=== PATIENT | male | born 1995 | race Caucasian/White ===

== ENCOUNTER 2023-06-04 14:21 | Outpatient (AMB) | payer BC, SELFPAY ==
--- NOTE | 2023-06-04 14:43 | HO.NEPHOV ---
HPI HPI Comments History of Present Illness Details I had the privilege of seeing Ralph in consultation for labile hypertension in a clinical environment. 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 He claims to have been having high blood pressure even from the age of 10 years when he goes to see a physician. He has gained some weight. He has not known to have any renal dysfunction, diabetes, low potassium, high calcium, flushing, sweating, palpitation, diarrhea or orthostatic symptoms. His mother is hypertensive. He has not very strict with low-sodium diet. He does not take any nonsteroidal anti-inflammatory medications nor has any history of cocaine use. He is quite active. He did not have any other systemic complaints at the time of this office visit. [facility] Medical History (Updated 06/04/23 @ 15:07 by Chase Panchal MD) SI (sacroiliac) joint dysfunction Hypertension History of gastroenteritis Fatty liver Elevated blood pressure reading Diarrhea Family History (Updated 06/04/23 @ 14:47 by Anya Rizvi MA) Paternal Grandfather Diabetes mellitus, type II Paternal Grandmother Diabetes mellitus, type II Maternal Grandmother Diabetes mellitus, type II Mother Hypertension Father Diabetes mellitus, type II Social History (Updated 06/04/23 @ 14:48 by Anya Rizvi MA) Alcohol intake: current Comment: Socially Patient Tobacco Use Status: Never used Tobacco Vital Signs 06/04/23 14:44 Height 6 ft Weight 271 lb 4 oz BMI 36.8 BP 140/80 H Blood Pressure Location Lt brachial Position Sitting Pulse 109 H Pulse Source Pulse Oximeter Pulse Oximetry (%) 100 Oxygen Delivery Method Room Air Physical Exam Vital Signs: Last Vital Signs Pulse 109 H 06/04/23 14:44 BP 140/80 H 06/04/23 14:44 Pulse Ox 100 06/04/23 14:44 Oxygen Delivery Method Room Air 06/04/23 14:44 BMI result Body Mass Index 36.8 Const General: comfortable and no acute distress Orientation/consciousness: patient oriented x3 HEENT Head: Yes normocephalic Mouth: Normal oral and palatal mucosa present Eyes EOM: EOMs intact bilaterally Neck Neck: Yes supple Resp Auscultation: clear to auscultation bilaterally Cardio Jugular venous distension: no JVD Rate: regular rate GI Palpation (GI): Soft to palpation Auscultation: normal bowel sounds General: Yes no CVA tenderness Back/Spine/Pelvis Back: no CVA tenderness Skin General skin exam: no rashes or lesions noted Neuro General: patient oriented x3 and moves all extremities Extrem General: Yes no pedal edema Assessment & Plan Assessment & Plan (1) Labile hypertension due to clinical environment: Code(s): R09.89 - Other specified symptoms and signs involving the circulatory and respiratory systems Plan Ralph is known to have white coat hypertension. He never had any low potassium or high calcium. He has gained some weight. I ordered a 24 hour ambulatory blood pressure monitor for him. He should be on a low-sodium diet and needs to lose some weight. His blood pressure is high by ambulatory blood pressure monitor, I would check his thyroid function, cortisol, metanephrines, renin, aldosterone as well as Doppler of his renal arteries. He needs to increase his activity, maintain good hydration and avoid nonsteroidal anti-inflammatories. He has no history of any coronary artery disease, diabetes mellitus or heart failure. I did not make any medication changes today. Further management is pending evolving data. Answered all his questions. Follow-up appointment given. Orders: Orders AMB 24 Hour Blood Pressure Monitor PLACEMENT 06/04/23 R09.89 - Other specified symptoms and signs involving the circulatory and respiratory systems Coding Level of Care Code New Pt Level 4 (76307) Diagnoses Labile hypertension due to clinical environment R09.89 Results Reviewed Nephrology Results: No Data to Display
[2023-06-04 14:44] VITALS: BP 140/80; PULSE 109; O2SAT 100; BMI 36.8
== END 2023-06-04 15:13 | disposition home or self-care (01) ==
PROVIDERS: PCP Family Medicine; Referring Provider Family Medicine; Visit Provider Internal Medicine Nephrology
DX: R09.89 Other specified symptoms and signs involving the circulatory and respiratory systems (principal)
CPT/HCPCS: 99204

== ENCOUNTER → 2023-06-04 14:21 | Outpatient (BNVA) | payer BC, SELFPAY | PROVIDERS: PCP Family Medicine; Referring Provider Family Medicine; Visit Provider Internal Medicine Nephrology ==

== ENCOUNTER → 2023-07-08 11:59 | Outpatient (BNVA) | payer BC, SELFPAY | PROVIDERS: PCP Family Medicine; Visit Provider Internal Medicine Nephrology ==

== ENCOUNTER 2023-07-09 11:56 | Outpatient (AMB) | payer BC, SELFPAY ==
[2023-07-09 12:24] VITALS: BP 140/72; PULSE 125; O2SAT 98; BMI 37.3
--- NOTE | 2023-07-09 12:24 | HO.NEPHOV_ITS ---
Vital Signs 07/09/23 12:24 Height 6 ft Weight 275 lb BMI 37.3 BP 140/72 H Blood Pressure Location Rt brachial Position Sitting Pulse 125 H Pulse Source Pulse Oximeter Pulse Oximetry (%) 98 Oxygen Delivery Method Room Air Intake Visit Reasons: ABPM results/ Confirmed Associate Director Regulatory Affairs Required: No Accompanied by: Self / Same As Patient Allergies amoxicillin Allergy (Verified 07/09/23 12:26) Unknown HPI Comments Details: I had the privilege of seeing Ralph in follow up for labile hypertension in a clinical environment. 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 He claims to have been having high blood pressure even from the age of 10 years when he goes to see a physician. He has gained some weight. He has not known to have any renal dysfunction, diabetes, low potassium, high calcium, flushing, sweating, palpitation, diarrhea or orthostatic symptoms. His mother is hypertensive. He has not very strict with low-sodium diet. He does not take any nonsteroidal anti-inflammatory medications nor has any history of cocaine use. He is quite active. He did not have any other systemic complaints at the time of this office visit. He had a 24 hour BP monitor which showed a 24 hour average of 133/75 with a day time average of 135/77 and night time average of 127/70 mm of Hg. [facility] Medical History (Updated 06/04/23 @ 15:07 by Chase Panchal MD) SI (sacroiliac) joint dysfunction Hypertension History of gastroenteritis Fatty liver Elevated blood pressure reading Diarrhea Family History Paternal Grandfather Diabetes mellitus, type II Paternal Grandmother Diabetes mellitus, type II Maternal Grandmother Diabetes mellitus, type II Mother Hypertension Father Diabetes mellitus, type II Social History Alcohol intake: current Comment: Socially Patient Tobacco Use Status: Never used Tobacco Physical Exam Vital Signs: Last Vital Signs Pulse 125 H 07/09/23 12:24 BP 140/72 H 07/09/23 12:24 Pulse Ox 98 07/09/23 12:24 Oxygen Delivery Method Room Air 07/09/23 12:24 BMI result Body Mass Index 37.3 Const General: comfortable and no acute distress Orientation/consciousness: patient oriented x3 HEENT Head: Yes normocephalic Mouth: Normal oral and palatal mucosa present Eyes EOM: EOMs intact bilaterally Neck Neck: Yes supple Resp Auscultation: clear to auscultation bilaterally Cardio Jugular venous distension: no JVD Rate: regular rate GI Palpation (GI): Soft to palpation Auscultation: normal bowel sounds General: Yes no CVA tenderness Back/Spine/Pelvis Back: no CVA tenderness Skin General skin exam: no rashes or lesions noted Neuro General: patient oriented x3 and moves all extremities Extrem General: Yes no pedal edema Results Reviewed Nephrology Results: No Data to Display Assessment & Plan Assessment & Plan (1) Labile hypertension due to clinical environment: Code(s): R09.89 - Other specified symptoms and signs involving the circulatory and respiratory systems Category: Medical Plan Ralph is known to have white coat hypertension. He never had any low potassium or high calcium. He has gained some weight. He had a 24 hour BP monitor which showed a 24 hour average of 133/75 with a day time average of 135/77 and night time average of 127/70 mm of Hg. I have discussed the possible options of management like Lifestyle modifications including significant weight loss as well as dietary changes versus initiating him on medications now and adjust/ back off on them if the blood pressure is better. He is going to get an echocardiogram soon. We agreed to have follow up in six-months and then decide which direction he should start taking medications to keep blood pressure close to 120/80. I would check his thyroid function, cortisol, metanephrines, renin, aldosterone as well as Doppler of his renal arteries, if his blood pressure remains fluctuant. He needs to increase his activity, maintain good hydration and avoid nonsteroidal anti-inflammatories. He has no history of any coronary artery disease, diabetes mellitus or heart failure. I did not make any medication changes today. Answered all his questions. Follow-up appointment given Coding Level of Care Code Est Pt Level 4 (78647) Diagnoses Labile hypertension due to clinical environment R09.89
== END 2023-07-09 12:45 | disposition home or self-care (01) ==
PROVIDERS: PCP Family Medicine; Visit Provider Internal Medicine Nephrology
DX: R09.89 Other specified symptoms and signs involving the circulatory and respiratory systems (principal)
CPT/HCPCS: 93790; 99214

== ENCOUNTER → 2023-07-09 11:56 | Outpatient (BNVA) | payer BC, SELFPAY | PROVIDERS: PCP Family Medicine; Visit Provider Internal Medicine Nephrology ==

== ENCOUNTER 2024-02-11 13:28 | Outpatient (AMB) | payer OTHER, SELFPAY ==
--- NOTE | 2024-02-11 13:32 | HO.NEPHOV ---
Vital Signs 02/11/24 13:34 Height 6 ft Weight 270 lb 4 oz BMI 36.6 BP 122/82 Blood Pressure Location Lt brachial Position Sitting Pulse 98 Pulse Source Pulse Oximeter Pulse Oximetry (%) 99 Oxygen Delivery Method Room Air Intake Visit Reasons: Dec follow up/ Conf Assistant Director Of Nursing Required: No Accompanied by: Self / Same As Patient Allergies amoxicillin Allergy (Verified 02/11/24 13:34) Unknown HPI Comments Details: Ralph in follow up for labile hypertension in a clinical environment. 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 He claims to have been having high blood pressure even from the age of 10 years when he goes to see a physician. He has not known to have any renal dysfunction, diabetes, low potassium, high calcium, flushing, sweating, palpitation, diarrhea or orthostatic symptoms. His mother is hypertensive. He has not very strict with low-sodium diet. He does not take any nonsteroidal anti-inflammatory medications nor has any history of cocaine use. He is quite active. He did not have any other systemic complaints at the time of this office visit. [facility] Medical History (Updated 06/04/23 @ 15:07 by Chase Panchal MD) SI (sacroiliac) joint dysfunction Hypertension History of gastroenteritis Fatty liver Elevated blood pressure reading Diarrhea Family History Paternal Grandfather Diabetes mellitus, type II Paternal Grandmother Diabetes mellitus, type II Maternal Grandmother Diabetes mellitus, type II Mother Hypertension Father Diabetes mellitus, type II Social History Alcohol intake: current Comment: Socially Patient Tobacco Use Status: Never used Tobacco Review of Systems Const All systems reviewed & are unremarkable except as noted in HPI and below Physical Exam Const General: comfortable and no acute distress Orientation/consciousness: patient oriented x3 HEENT Head: Yes normocephalic Mouth: Normal oral and palatal mucosa present Eyes EOM: EOMs intact bilaterally Neck Neck: Yes supple Resp Auscultation: clear to auscultation bilaterally Cardio Jugular venous distension: no JVD Rate: regular rate GI Palpation (GI): Soft to palpation Auscultation: normal bowel sounds General: Yes no CVA tenderness Back/Spine/Pelvis Back: no CVA tenderness Skin General skin exam: no rashes or lesions noted Neuro General: patient oriented x3 and moves all extremities Extrem General: Yes no pedal edema Results Reviewed Nephrology Results: No Data to Display Assessment & Plan Assessment & Plan (1) Labile hypertension due to clinical environment: Code(s): R09.89 - Other specified symptoms and signs involving the circulatory and respiratory systems Category: Medical Plan Ralph is known to have white coat hypertension. He never had any low potassium or high calcium. He is on losartan 50 mg daily which is keeping BP at goal. He needs to increase his activity, maintain good hydration and avoid nonsteroidal anti-inflammatories. He has no history of any coronary artery disease, diabetes mellitus or heart failure. I did not make any medication changes today. Answered all his questions. Follow-up appointment given Coding Level of Care Code Est Pt Level 4 (83134) Diagnoses Labile hypertension due to clinical environment R09.89
[2024-02-11 13:34] VITALS: BP 122/82; PULSE 98; O2SAT 99; BMI 36.6
== END 2024-02-11 14:04 | disposition home or self-care (01) ==
PROVIDERS: PCP Family Medicine; Visit Provider Internal Medicine Nephrology
DX: R09.89 Other specified symptoms and signs involving the circulatory and respiratory systems (principal)
CPT/HCPCS: 99214

== ENCOUNTER → 2024-02-11 13:28 | Outpatient (BNVA) | payer OTHER, SELFPAY | PROVIDERS: PCP Family Medicine; Visit Provider Internal Medicine Nephrology ==

== ENCOUNTER 2025-02-09 13:14 | Outpatient (AMB) | payer OTHER, SELFPAY ==
--- NOTE | 2025-02-09 13:17 | HO.NEPHOV_ITS ---
Vital Signs 02/09/25 13:25 Height 6 ft Weight 263 lb 5 oz BMI 35.7 BP 130/80 Blood Pressure Location Lt brachial Position Sitting Pulse 125 H Pulse Source Pulse Oximeter Pulse Oximetry (%) 98 Oxygen Delivery Method Room Air Intake Visit Reasons: 1yr follow up-No labs-LVM Program Services Assistant Required: No Accompanied by: Self / Same As Patient Allergies amoxicillin Allergy (Verified 02/09/25 13:25) Unknown HPI Comments Details: Ralph was seen in follow up for hypertension. 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 He claims to have been having high blood pressure even from the age of 10 years when he goes to see a physician. He has not known to have any renal dysfunction, diabetes, low potassium, high calcium, flushing, sweating, palpitation, diarrhea or orthostatic symptoms. His mother is hypertensive. He has not very strict with low-sodium diet. He does not take any nonsteroidal anti-inflammatory medications nor has any history of cocaine use. He is quite active. He did not have any other systemic complaints at the time of this office visit. [facility] Medical History (Updated 02/09/25 @ 13:18 by Chase Panchal MD) SI (sacroiliac) joint dysfunction Hypertension History of gastroenteritis Fatty liver Elevated blood pressure reading Diarrhea Family History Paternal Grandfather Diabetes mellitus, type II Paternal Grandmother Diabetes mellitus, type II Maternal Grandmother Diabetes mellitus, type II Mother Hypertension Father Diabetes mellitus, type II Social History Alcohol intake: current Comment: Socially Patient Tobacco Use Status: Never used Tobacco Review of Systems Const All systems reviewed & are unremarkable except as noted in HPI and below Physical Exam Vital Signs: Last Vital Signs Pulse 125 H 02/09/25 13:25 BP 130/80 02/09/25 13:25 Pulse Ox 98 02/09/25 13:25 Oxygen Delivery Method Room Air 02/09/25 13:25 BMI result Body Mass Index 35.7 Const General: comfortable and no acute distress Orientation/consciousness: patient oriented x3 HEENT Head: Yes normocephalic Mouth: Normal oral and palatal mucosa present Eyes EOM: EOMs intact bilaterally Neck Neck: Yes supple Resp Auscultation: clear to auscultation bilaterally Cardio Jugular venous distension: no JVD Rate: regular rate GI Palpation (GI): Soft to palpation Auscultation: normal bowel sounds General: Yes no CVA tenderness Back/Spine/Pelvis Back: no CVA tenderness Skin General skin exam: no rashes or lesions noted Neuro General: patient oriented x3 and moves all extremities Extrem General: Yes no pedal edema Assessment & Plan Assessment & Plan (1) Hypertension: Code(s): I10 - Essential (primary) hypertension Category: Medical Qualifiers: Hypertension type: primary hypertension Qualified Code(s): I10 - Essential (primary) hypertension Plan Ralph is known to have hypertension which is well controlled on current dose of losartan. He never had any low potassium or high calcium. He needs to increase his activity, maintain good hydration and avoid nonsteroidal anti- inflammatories. He has no history of any coronary artery disease, diabetes mellitus or heart failure. I did not make any medication changes today. Answered all his questions. Follow-up appointment given Orders: Orders Creatinine Today I10 - Essential (primary) hypertension Blood Urea Nitrogen Today I10 - Essential (primary) hypertension Electrolytes Today I10 - Essential (primary) hypertension Medications: Changed From losartan 50 mg PO DAILY To losartan 50 mg PO DAILY 90 tabs 3RF Coding Level of Care Code Est Pt Level 4 (80224) Diagnoses Primary hypertension I10 Hypertension type: primary hypertension
[2025-02-09 13:25] VITALS: BP 130/80; PULSE 125; O2SAT 98; BMI 35.7
--- OUTSIDE RECORDS SUMMARY | 2025-02-09 15:11 | XMS_ITS | Clinical Summary ---
Author Organization [address] [place] [address] [place] [phone] Phone Care Team Providers Care Generator Assembler Name Role Phone Andi Baldwin DO Primary Care Provider Allergies Active Allergy Reactions Criticality Noted Date Comments Amoxicillin 02/17/2024 Medications losartan (COZAAR) 25 mg tablet Take 2 tablets (50 mg total) by mouth 1 (one) time each day. 12/18/2023 Active amitriptyline (ELAVIL) 10 mg tablet Take 1 tablet (10 mg total) by mouth at bedtime. at bedtime 01/23/2024 Active famotidine (PEPCID) 20 mg tablet Take 1 tablet (20 mg total) by mouth at bedtime. at bedtime 01/23/2024 Active dicyclomine (BENTYL) 10 mg capsule if needed. 10/16/2023 Active Active Problems Problem Noted Date Diagnosed Date Hypertension 02/17/2024 Left atrial dilation 02/14/2024 Social History Tobacco Use Types Packs/Day Years Used Date Smoking Tobacco: Never Smokeless Tobacco: Never Tobacco Cessation:Counseling Given: Not Answered Alcohol Use Standard Drinks/Week Comments Yes 0 (1 standard drink = 0.6 oz pur e alcohol) 2-3 weekly Sex and Gender Information Value Date Recorded Sex Assigned at Not on file Legal Sex Male 11:04 AM EDT Gender Identity Not on file Sexual Orientation Not on file Obstetrics History Last Filed Vital Signs Vital Sign Reading Time Taken Comments Blood Pressure 143/60 02/17/2024 2:18 PM EST Pulse 104 02/17/2024 2:18 PM EST Temperature - - Respiratory Rate - - Oxygen Saturation 98% 02/17/2024 2:18 PM EST Inhaled Oxygen Concentration - - Weight 124 kg (274 lb) 02/17/2024 2:18 PM EST Height 182.9 cm (6') 02/17/2024 2:18 PM EST Body Mass Index 37.16 02/17/2024 2:18 PM EST Plan of Treatment Health Maintenance Due Date Last Done Comments DTaP,Tdap,and Td Vaccines (1 - Tdap) 2016 Hepatitis B Vaccines (1 of 3 - 19+ 3-dose series) 2016 Cholesterol Screening (Lipid Panel) 11/06/2023 HIV Screening 11/06/2023 Hepatitis C Screening 11/06/2023 Social Influencers of Health Screening 11/06/2023 Hypertension/CHF/CAD Annual BMP Blood Test 02/17/2024 Depression Screening 03/11/2024 HPV Vaccines (1 - 3-dose SCD M series) 2024 COVID-19 Vaccine (1 - 2024-2 6 season) 2024 Influenza Vaccine (#1) 2024 RSV Immunization Adult Patie nts (1 - 1-dose 75+ series) 2072 HIB Vaccines Aged Out No longer eligi ble based on patient's age to complete this topic Hepatitis A Vaccines Aged Out No long er eligible based on patient's age to complete this topic IPV Vaccines Aged Out No longer eligi ble based on patient's age to complete this topic MMR Vaccines Aged Out No longer eligi ble based on patient's age to complete this topic Meningococcal ACWY Vaccine Aged Out N o longer eligible based on patient's age to complete this topic Meningococcal B Vaccine Aged Out No l onger eligible based on patient's age to complete this topic Pneumococcal Vaccine: Pediat rics (0 to 5 Years) and At-Risk Patients (6 to 49 Years) Aged Out No longer eligible b ased on patient's age to complete this topic RSV Immunization Patients Un camille 20 months Aged Out No longer eligible b ased on patient's age to complete this topic Varicella Vaccines Aged Out No longer eligible based on patient's age to complete this topic Insurance [facility] [address] [place] [id number] Care Teams Generator Assembler Relationship Specialty Start Date End Date Andi Baldwin DO [address], [place] PCP - General 08/09/23
== END 2025-02-09 13:58 | disposition home or self-care (01) ==
LOC: HO.HKAS 13:15
PROVIDERS: PCP Family Medicine; Visit Provider Internal Medicine Nephrology
DX: I10 Essential (primary) hypertension (principal)
CPT/HCPCS: 99214